=== PATIENT | female | born 1965 | race American Indian/Alaskan Native ===

== ENCOUNTER 2017-03-27 10:27 | Outpatient (CLI) | payer MEDICAID ==
--- NOTE | 2017-03-27 14:53 | Mammography Report ---
BILATERAL DIGITAL SCREENING MAMMOGRAM with CAD: 03/27/17 CLINICAL: Routine screening.Previous right benign biopsy. COMPARISON:None available. However, a prior mammogram was apparently done at [facility]. FINDINGS: The breasts are heterogeneously dense, which may obscure small masses. Right asymmetries and calcifications require comparison with the prior mammogram or additional imaging. The left breast is negative. IMPRESSION: Right asymmetries requiring further evaluation. BI-RADS CATEGORY: 0 -- Additional Evaluation Required RECOMMENDATION: Comparison with a previous mammogram. We will attempt obtain a prior mammogram from [facility]. If we do not obtain a prior mammogram for comparison within 30 days, a revised report will be issued recommending a recall for additional imaging. Please be advised that the patient should not schedule an appointment for return until adequate time (at least 2 weeks) has passed for us to obtain the prior mammogram. ACR BI-RADS MAMMOGRAPHIC CODES: 0 = Needs additional imaging evaluation; 1 = Negative; 2 = Benign; 3 = Probably benign; 4 = Suspicious; 5 = Malignant; 6 = Known biopsy-proven malignancy COMMENT: 1. Dense breast tissue, i.e., adenosis, fibrocystic changes, etc., may obscure an underlying neoplasm. 2. Approximately 10% of cancers are not detected with mammography. 3. A negative mammography report should not delay biopsy if a clinically suspicious mass is present. COMMENT: Patient follow-up letters are generated via our [email or web address] application.
== END 2017-03-27 10:28 | disposition home or self-care (01) ==
LOC: SPVWC 10:27
DX: Z12.31 Encounter for screening mammogram for malignant neoplasm of breast (principal); I10 Essential (primary) hypertension; Z72.0 Tobacco use
CPT/HCPCS: 77067; G0202

== ENCOUNTER 2017-05-28 09:36 | Outpatient (CLI) | payer OTHER ==
--- NOTE | 2017-05-28 11:08 | Mammography Report ---
RIGHT DIGITAL DIAGNOSTIC MAMMOGRAM : 05/28/17 09:36:00 CLINICAL: Recalled for asymmetries. COMPARISON:03/27/17 screening FINDINGS: ML and spot compression MLO and CC views were performed. Satisfactory effacement of asymmetries and no asymmetry of the lateral view. IMPRESSION: No mammographic evidence of malignancy. BI-RADS CATEGORY: 2 - - Benign RECOMMENDATION: Routine mammographic screening in one year. ACR BI-RADS MAMMOGRAPHIC CODES: 0 = Needs additional imaging evaluation; 1 = Negative; 2 = Benign; 3 = Probably benign; 4 = Suspicious; 5 = Malignant; 6 = Known biopsy-proven malignancy COMMENT: 1. Dense breast tissue, i.e., adenosis, fibrocystic changes, etc., may obscure an underlying neoplasm. 2. Approximately 10% of cancers are not detected with mammography. 3. A negative mammography report should not delay biopsy if a clinically suspicious mass is present. COMMENT: Patient follow-up letters are generated via our [employer] application.
== END 2017-05-28 09:37 | disposition home or self-care (01) ==
LOC: SPVWC 09:36
DX: R92.8 Other abnormal and inconclusive findings on diagnostic imaging of breast (principal); I10 Essential (primary) hypertension; E11.9 Type 2 diabetes mellitus without complications
CPT/HCPCS: G0206-RT

== ENCOUNTER 2019-05-01 08:53 | Emergency (ER) | payer MEDICARE, OTHER ==
[2019-05-01 09:04] VITALS: BP 152/88
[2019-05-01] MEDS ORDERED: PEPCID PO ONE (10:02)
[2019-05-01] MEDS ORDERED: BENADRYL PO ONE (10:02)
--- NOTE | 2019-05-01 10:02 | Emergency Department Report ---
ED Rash HPI - HPI Chief Complaint: Allergic Reaction Stated Complaint: ALLERGIC REACTION Time Seen by Provider: 05/01/19 09:57 Duration: 3 Days Location: Back, Lower Extremities Suspected Cause: Unknown Rash Symptoms: Yes Itching, Yes Facial Swelling (eye lid swelling), No Tongue/Oral Swelling, No Breathing Difficulties, No Choking Sensation, No Wheezing/Dyspnea, No Peeling, No Blistering, No Fever, No Lightheaded, No Malaise, No Myalgias Severity: mild Other History: Mrs. Ayala is a 53-year-old female with history of aqu-[id number] diabetes who presents with allergic reaction that started earlier this week. She has diffuse itching. However she has urticaria mostly in her lower back and posterior legs. Unclear the inciting factor for the reaction. She denies shortness of breath. She denies sore throat. ED Review of Systems ROS: Stated complaint: ALLERGIC REACTION Other details as noted in HPI Constitutional: denies: fever, malaise Respiratory: shortness of breath Cardiovascular: chest pain Skin: rash, lesions ED Past Medical Hx - Past Medical History Previous Medical History?: Yes Hx Hypertension: Yes Hx Diabetes: Yes Additional medical history: HIGH CHOLESTEROL. ANGINA. neuropathy - Surgical History Past Surgical History?: Yes Additional Surgical History: partial hysterectomy 1989 - Social History Smoking Status: Never Smoker Substance Use Type: None - Medications Home Medications: Home Medications Medication Instructions Recorded Confirmed Last Taken Type Metoprolol [Lopressor TAB] 100 mg PO DAILY #30 tablet 08/30/14 05/11/16 09/28/14 Rx metFORMIN [Glucophage] 850 mg PO BIDDIAB #60 tablet 08/30/14 05/11/16 09/28/14 Rx Ibuprofen [Motrin 600 MG tab] 600 mg PO Q8H PRN #15 tablet 07/25/15 05/11/16 Unknown Rx AtorvaSTATin [Lipitor] 20 mg PO DAILY 05/11/16 05/11/16 Unknown History Citalopram [celeXA] 20 mg PO QDAY 05/11/16 05/11/16 Unknown History Gabapentin [Neurontin] 100 mg PO DAILY 05/11/16 05/11/16 Unknown History Prednisone [predniSONE 5 mg (6-Day 5 mg PO .TAPER #1 tab.ds.pk 05/11/16 Unknown Rx Pack, 21 Tabs)] glipiZIDE [Glucotrol] 10 mg PO QDAY 05/11/16 05/11/16 Unknown History hydrOXYzine HCL [Atarax] 25 mg PO Q6HR PRN #20 tablet 05/11/16 Unknown Rx raNITIdine HCl [Zantac 150 MG TAB] 150 mg PO BID #60 tablet 05/11/16 Unknown Rx Famotidine [Pepcid] 20 mg PO BID 3 Days #6 tablet 05/01/19 Unknown Rx Hydrocortisone 1% [Hydrocortisone 1 applicatio TP TID 7 Days #1 tube 05/01/19 Unknown Rx 1% CREAM] Prednisone [predniSONE 5 mg (6-Day 5 mg PO .TAPER #1 tab.ds.pk 05/01/19 Unknown Rx Pack, 21 Tabs)] diphenhydrAMINE [Benadryl CAP] 50 mg PO Q8HR 4 Days #12 capsule 05/01/19 Unknown Rx Rash Exam - Exam General: Vital signs noted. No distress. Alert and acting appropriately. HEENT: Yes Periorbital Edema (mild edema upper eyelids), No Conjuctival Injection, No Chemosis, No Perioral Edema, No Tongue Edema, No Uvular Edema, No Compromised Airway, No Drooling Lungs: Yes Good Air Exchange (Normal Breath Sounds), No Wheezes, No Ronchi, No Stridor, No Cough, No Labored Respirations, No Retractions, No Use of Accessory Muscles, No Other Abnormal Lung Sounds Heart: Yes Regular, No Murmur Skin: Yes Urticarial Rash (isolated to lower back) Other: Positive: Abdomen Normal, Neurologic Normal, Musculoskeletal Normal ED Course Vital Signs 05/01/19 08:58 Temperature 98.4 F Pulse Rate 95 H Respiratory 18 Rate Blood Pressure 152/88 O2 Sat by Pulse 100 Oximetry ED Medical Decision Making - Medical Decision Making Mrs. Ayala presents with diffuse itching periorbital edema isolated urticaria to the lower back and posterior legs. Contact dermatitis versus anaphylaxis, prescribed prednisone and famotidine Benadryl. No evidence of angioedema or bronchospasm. Blood pressure 152/88. Heart rate 95 beats a minute. Discharged home Critical care attestation.: If time is entered above; I have spent that time in minutes in the direct care of this critically ill patient, excluding procedure time. ED Disposition Clinical Impression: Contact dermatitis Disposition: DC- TO HOME OR SELFCARE Is pt being admited?: No Does the pt Need Aspirin: No Condition: Stable Instructions: Contact Dermatitis (ED) Prescriptions: diphenhydrAMINE [Benadryl CAP] 50 mg PO Q8HR 4 Days #12 capsule Hydrocortisone 1% [Hydrocortisone 1% CREAM] 1 applicatio TP TID 7 Days #1 tube Famotidine [Pepcid] 20 mg PO BID 3 Days #6 tablet Prednisone [predniSONE 5 mg (6-Day Pack, 21 Tabs)] 5 mg PO .TAPER #1 tab.ds.pk Referrals: GERARDO BENJAMIN MD [Primary Care Provider] - 3-5 Days
[2019-05-01] MEDS ORDERED: DELTASONE PO STA (10:03)
== END 2019-05-01 10:11 | disposition home or self-care (01) ==
LOC: ED 08:53
DX: L25.9 Unspecified contact dermatitis, unspecified cause (principal); I10 Essential (primary) hypertension; E11.9 Type 2 diabetes mellitus without complications; E78.00 Pure hypercholesterolemia, unspecified; G62.9 Polyneuropathy, unspecified; Z90.710 Acquired absence of both cervix and uterus; Z98.890 Other specified postprocedural states; Z79.899 Other long term (current) drug therapy
CPT/HCPCS: 99282; J7512

== ENCOUNTER 2019-05-11 01:35 | Observation (INO) | payer MEDICARE ==
[2019-05-11 02:28] LABS: Basophils # (Auto) 0.1 K/mm3 (0.0-0.1); Basophils % (Auto) 0.9 % (0.0-1.8); Eosinophils # (Auto) 0.3 K/mm3 (0.0-0.4); Eosinophils % (Auto) 2.2 % (0.0-4.3); Hematocrit 37.7 % (30.3-42.9); Hemoglobin 12.5 gm/dl (10.1-14.3); Lymphocytes # (Auto) 3.5 K/mm3 (1.2-5.4); Lymphocytes % (Auto) 22.3 % (13.4-35.0); Mean Corpuscular HGB Conc 33 % (30-34); Mean Corpuscular Volume 86 fl (79-97); Monocytes # (Auto) 1.2 K/mm3 (0.0-0.8); Monocytes % (Auto) 7.5 % (0.0-7.3); Platelet Count 342 K/mm3 (140-440); Red Cell Distribution Width 13.8 % (13.2-15.2)
[2019-05-11 02:44] LABS: BUN/Creatinine Ratio 19; Blood Urea Nitrogen 17 mg/dL (7-17); Calcium 9.2 mg/dL (8.4-10.2); Hemolysis Index 4
--- NOTE | 2019-05-11 02:53 | XRay Report ---
CHEST 1 VIEW INDICATION / CLINICAL INFORMATION: Chest Pain. COMPARISON: 08/29/2014 FINDINGS: SUPPORT DEVICES: None. HEART / MEDIASTINUM: No significant abnormality. LUNGS / PLEURA: No significant pulmonary or pleural abnormality. No pneumothorax. ADDITIONAL FINDINGS: No significant additional findings. IMPRESSION: 1. No acute findings. Signer Name: Griffin Souza MD Signed: 05/11/2019 2:48 AM Workstation Name: [email or web address]
[2019-05-11] MEDS ORDERED: ASPIRIN PO ONE (04:40)
[2019-05-11] MEDS ORDERED: NITRO-BID 2% TP ONE (04:40)
[2019-05-11] MEDS ORDERED: SUBLIMAZE IV ONE (04:40)
[2019-05-11] MEDS ORDERED: ZOFRAN IV ONE (04:40)
--- NOTE | 2019-05-11 04:42 | Emergency Department Report ---
HPI - General Chief Complaint: Chest Pain Time Seen by Provider: 05/11/19 04:25 - HPI HPI: Room 26 The patient is a 53-year-old female presenting with chief complaint of chest pain and palpitations. The patient states the past 3 days she has had pain in her right chest radiating to her right shoulder. Patient describes the pain is sharp and burning in nature. Patient admits to nausea but denies vomiting or shortness of breath. Patient states she has had has some diaphoresis with the chest pain. Patient states it also feels though her heart is racing that she is experiencing palpitations. He gives her chest pain score of 6/10. She states h er last cardiac catheterization occurred in 2017 and she was told she had a 60% blockage in one of her vessels. No stents were placed ED Past Medical Hx - Past Medical History Previous Medical History?: Yes Hx Hypertension: Yes Hx Diabetes: Yes Hx Arthritis: Yes Additional medical history: HIGH CHOLESTEROL. ANGINA. neuropathy - Surgical History Past Surgical History?: Yes Additional Surgical History: partial hysterectomy 1989 - Family History Family history: no significant - Social History Smoking Status: Never Smoker Substance Use Type: None (denies illicit drug use) - Medications Home Medications: Home Medications Medication Instructions Recorded Confirmed Last Taken Type Metoprolol [Lopressor TAB] 100 mg PO DAILY #30 tablet 08/30/14 05/11/16 09/28/14 Rx metFORMIN [Glucophage] 850 mg PO BIDDIAB #60 tablet 08/30/14 05/11/16 09/28/14 Rx Ibuprofen [Motrin 600 MG tab] 600 mg PO Q8H PRN #15 tablet 07/25/15 05/11/16 Unknown Rx AtorvaSTATin [Lipitor] 20 mg PO DAILY 05/11/16 05/11/16 Unknown History Citalopram [celeXA] 20 mg PO QDAY 05/11/16 05/11/16 Unknown History Gabapentin [Neurontin] 100 mg PO DAILY 05/11/16 05/11/16 Unknown History Prednisone [predniSONE 5 mg (6-Day 5 mg PO .TAPER #1 tab.ds.pk 05/11/16 Unknown Rx Pack, 21 Tabs)] glipiZIDE [Glucotrol] 10 mg PO QDAY 05/11/16 05/11/16 Unknown History hydrOXYzine HCL [Atarax] 25 mg PO Q6HR PRN #20 tablet 05/11/16 Unknown Rx raNITIdine HCl [Zantac 150 MG TAB] 150 mg PO BID #60 tablet 05/11/16 Unknown Rx Famotidine [Pepcid] 20 mg PO BID 3 Days #6 tablet 05/01/19 Unknown Rx Hydrocortisone 1% [Hydrocortisone 1 applicatio TP TID 7 Days #1 tube 05/01/19 Unknown Rx 1% CREAM] Prednisone [predniSONE 5 mg (6-Day 5 mg PO .TAPER #1 tab.ds.pk 05/01/19 Unknown Rx Pack, 21 Tabs)] diphenhydrAMINE [Benadryl CAP] 50 mg PO Q8HR 4 Days #12 capsule 05/01/19 Unknown Rx ED Review of Systems ROS: Stated complaint: HEART RACING/LEFT SHOULDER PAIN Other details as noted in HPI Constitutional: diaphoresis Eyes: denies: eye pain ENT: denies: throat pain Respiratory: shortness of breath Cardiovascular: chest pain, palpitations Endocrine: no symptoms reported Gastrointestinal: nausea. denies: vomiting Genitourinary: denies: dysuria Musculoskeletal: denies: back pain Neurological: denies: headache Physical Exam - Physical Exam Vital Signs: Vital Signs 05/11/19 01:49 Temperature 98.0 F Pulse Rate 104 H Blood Pressure 160/72 O2 Sat by Pulse 97 Oximetry Physical Exam: GENERAL: The patient is well-developed well-nourished female lying on stretcher not appearing to be in acute distress. [] HEENT: Normocephalic. Atraumatic. Extraocular motions are intact. Patient has moist mucous membranes. NECK: Supple. Trachea midline CHEST/LUNGS: Clear to auscultation. There is no respiratory distress noted. HEART/CARDIOVASCULAR: Regular. There is no tachycardia. There is no gallop rub or murmur. ABDOMEN: Abdomen is soft, nontender. Patient has normal bowel sounds. There is no abdominal distention. SKIN: There is no rash. There is no edema. There is no diaphoresis. NEURO: The patient is awake, alert, and oriented. The patient is cooperative. The patient has normal speech MUSCULOSKELETAL:There is no evidence of acute injury. ED Course Vital Signs 05/11/19 01:49 Temperature 98.0 F Pulse Rate 104 H Blood Pressure 160/72 O2 Sat by Pulse 97 Oximetry ED Medical Decision Making - Lab Data Result diagrams: 05/11/19 02:05 05/11/19 02:05 - EKG Data -: EKG Interpreted by Me EKG shows normal: sinus rhythm Rate: normal - EKG Data When compared to previous EKG there are: changes noted Interpretation: nonspecific ST-T wave mary (T-wave inversion in lead V6), other (frequent PVCs) - Radiology Data Radiology results: report reviewed (chest x-ray), image reviewed (chest x-ray) interpreted by me: Chest x-ray-no focal infiltrates, no pneumothorax [facility] [address] [place] [address] XRay Report Signed Patient: MANUEL AYALA MR#: [id number] : 1965 Acct:[id number] Age/Sex: 53 / F ADM Date: 05/11/19 Loc: ED Attending Dr: Ordering Physician: ED MD SADA Date of Service: 05/11/19 Procedure(s): XR chest 1V ap Accession Number(s): [id number] cc: ED MD SADA Fluoro Time In Minutes: CHEST 1 VIEW INDICATION / CLINICAL INFORMATION: Chest Pain. COMPARISON: 08/29/2014 FINDINGS: SUPPORT DEVICES: None. HEART / MEDIASTINUM: No significant abnormality. LUNGS / PLEURA: No significant pulmonary or pleural abnormality. No pneumothorax. ADDITIONAL FINDINGS: No significant additional findings. IMPRESSION: 1. No acute findings. Signer Name: Griffin Souza MD Signed: 05/11/2019 2:48 AM Workstation Name: [id number] Transcribed By: Dictated By: Griffin Souza MD Electronically Authenticated By: Griffin Souza MD Signed Date/Time: 05/11/19247 DD/ 7 TD/TT: - Differential Diagnosis ACS, pericarditis, GERD Critical care attestation.: If time is entered above; I have spent that time in minutes in the direct care of this critically ill patient, excluding procedure time. ED Disposition Clinical Impression: Chest pain Disposition: OP ADMIT IP TO THIS HOSP Is pt being admited?: Yes Does the pt Need Aspirin: Yes Condition: Fair Instructions: Chest Pain (ED) Referrals: WALESKA MALLORY [Other] - 3-5 Days Time of Disposition: 04:48 (hospitalist paged (Dr. Chanel Ayala))
[2019-05-11] MEDS ORDERED: MORPHINE IV PRN (05:49)
--- NOTE | 2019-05-11 09:08 | History and Physical Report ---
History of Present Illness Date of examination: 05/11/19 Date of admission: 05/11/19 05:55 Chief complaint: Chest pain History of present illness: The patient is a 53-year-old woman with history of hypertension, diabetes on oral hypoglycemic medications, who presented with chest pain and palpitations. She has a extensive cardiac ischemic workup at [facility] last year, which included a cardiac catheterization and she was told she had mild nonobstructive disease for conservative management. She presents to the hospital at this time with nonexertional chest pain, poorly characterized, with additional complaints of palpitations. There was no dizziness or syncope. There is no lower extremity edema. EKG is sinus rhythm with left bundle-branch block. The left bundle branch block is old, and present on her ECG from 2013. She was ordered for stress test admitted for further examination and management, cardiology consulted in the ED. Past medical History: h/o hypertension, diabetes PAST SURGICAL HISTORY: Partial hysterectomy SOCIAL HISTORY: Denies alcohol, tobacco, drugs FAMILY HISTORY: Hypertension Review of System: Constitutional: no fever, no chills, no weight loss Ears, eyes, nose, mouth and throat: no nasal congestion, no nasal discharge, no sinus pressure, no vision change, no red eye. Neck: No neck pain or rigidity. Cardiovascular: + chest pain, no orthopnea, + palpitations, no leg swelling Respiratory: No shortness of breath, no cough, no congestion, no wheezing Gastrointestinal: no abdominal pain, no nausea, no vomiting Genitourinary : no dysuria, no hematuria Musculoskeletal: no joint swelling or muscle ache Integumentary: no rash, no pruritis Neurological: no parathesias, no numbness, no tingling Endocrine: no cold or heat intolerance, no polyuria or polydipsia Hematologic/Lymphatic: no easy bruising, no easy bleeding, no gland swelling Allergic/Immunologic: no urticaria, no angioedema. Medications and Allergies Allergies Allergy/AdvReac Type Severity Reaction Status Date / Time No Known Allergies Allergy Verified 07/25/15 16:59 Home Medications Medication Instructions Recorded Confirmed Last Taken Type Metoprolol [Lopressor TAB] 100 mg PO DAILY #30 tablet 08/30/14 05/11/16 09/28/14 Rx metFORMIN [Glucophage] 850 mg PO BIDDIAB #60 tablet 08/30/14 05/11/16 09/28/14 Rx AtorvaSTATin [Lipitor] 20 mg PO DAILY 05/11/16 05/11/16 Unknown History Citalopram [Celexa] 20 mg PO QDAY 05/11/16 05/11/16 Unknown History Gabapentin [Neurontin] 100 mg PO DAILY 05/11/16 05/11/16 Unknown History glipiZIDE [Glucotrol] 10 mg PO QDAY 05/11/16 05/11/16 Unknown History raNITIdine HCl [Zantac] 150 mg PO BID #60 tablet 05/11/16 Unknown Rx Famotidine [Pepcid] 20 mg PO BID 3 Days #6 tablet 05/01/19 Unknown Rx Prednisone [predniSONE 5 mg (6-Day 5 mg PO .TAPER #1 tab.ds.pk 05/01/19 Unknown Rx Pack, 21 Tabs)] Pantoprazole [Protonix] 40 mg PO QDAY #30 tablet 05/11/19 Unknown Rx Active Meds: Active Medications Morphine Sulfate (Morphine) 2 mg IV Q4H PRN PRN Reason: Pain, Moderate (4-6) Exam - Physical Exam Narrative exam: GENERAL: well-developed and well-nourished obese female lying on bed appeared to be in no discomfort. HEENT: Normocephalic. Atraumatic. No conjunctival congestion or icterus. Patient has moist mucous membranes. NECK: Supple. Trachea midline. CHEST/LUNGS: Clear to auscultated bilaterally, breathing nonlabored. No wheezes crackles or rhonchi. HEART/CARDIOVASCULAR: Regular in rate and rhythm. S1 and S2 positive. ABDOMEN: Abdomen is soft, nontender. Patient has normal bowel sounds. SKIN: There is no rash. Warm and dry. NEURO: No focal motor deficit. Follows command. MUSCULOSKELETAL: No joint effusion or tenderness. EXTRIMITY: No edema, no cyanosis or clubbing. PSYCH: Cooperative. - Constitutional Vitals: Temp Pulse Resp BP Pulse Ox 98.0 F 97 H 19 142/64 98 05/11/19 01:49 05/11/19 06:00 05/11/19 06:00 05/11/19 06:00 05/11/19 06:00 Results - Labs CBC & Chem 7: 05/11/19 02:05 05/11/19 02:05 Labs: Abnormal lab results 05/11/19 05/11/19 Range/Units 02:05 02:05 WBC 15.7 H (4.5-11.0) K/mm3 [place] % (Auto) 7.5 H (0.0-7.3) % [place] # 1.2 H (0.0-0.8) K/mm3 Seg Neutrophils # 10.5 H (1.8-7.7) K/mm3 Glucose 184 H (65-100) mg/dL - Imaging and Cardiology Chest x-ray: report reviewed Assessment and Plan Acute chest pain - - will admit to telemetry bed - monitor with serial CE and EKG - will place on Aspirin, statin - as needed SL NTG and iv morphin for pain - Monitor BP, add betablocker and ACEI if BP tolerates - order 2D echo and stress test in the am - Cardiologic consult Hypertension, we'll resume home meds Diabetes mellitus type 2, will place on SSI and continue metformin and glipizide Obesity, dietary and exercise recommendation when clinically stable DVT prophylaxis: Lovenox
[2019-05-11] MEDS ORDERED: LEXISCAN IV ONE (10:39)
--- NOTE | 2019-05-11 14:11 | Consultation ---
History of Present Illness Consult date: 05/11/19 Consult reason: chest pain History of present illness: The patient is a 53-year-old woman who presented with chest pain and palpitat ions. She has a history of hypertension, and describes extensive cardiac ischemic workup at [facility] last year, which included a cardiac catheterization. Following cardiac catheterization, she states that she was told she had mild nonobstructive disease for conservative management. She is uncertain about her left ventricular systolic function or ejection fraction. She presents to the hospital at this time with nonexertional chest pain, poorly characterized, with additional complaints of palpitations. There was no dizziness or syncope. There is no lower extremity edema. EKG is sinus rhythm with left bundle-branch block. The left bundle branch block is old, and present on her ECG from 2013. Today, she underwent a Lexiscan thallium stress test ordered by the medical se becky, the test was completed and the results are pending. Past History Past Medical History: hypertension Medications and Allergies Allergies Allergy/AdvReac Type Severity Reaction Status Date / Time No Known Allergies Allergy Verified 07/25/15 16:59 Home Medications Medication Instructions Recorded Confirmed Last Taken Type Metoprolol [Lopressor TAB] 100 mg PO DAILY #30 tablet 08/30/14 05/11/16 09/28/14 Rx metFORMIN [Glucophage] 850 mg PO BIDDIAB #60 tablet 08/30/14 05/11/16 09/28/14 Rx Ibuprofen [Motrin 600 MG tab] 600 mg PO Q8H PRN #15 tablet 07/25/15 05/11/16 Unknown Rx AtorvaSTATin [Lipitor] 20 mg PO DAILY 05/11/16 05/11/16 Unknown History Citalopram [celeXA] 20 mg PO QDAY 05/11/16 05/11/16 Unknown History Gabapentin [Neurontin] 100 mg PO DAILY 05/11/16 05/11/16 Unknown History Prednisone [predniSONE 5 mg (6-Day 5 mg PO .TAPER #1 tab.ds.pk 05/11/16 Unknown Rx Pack, 21 Tabs)] glipiZIDE [Glucotrol] 10 mg PO QDAY 05/11/16 05/11/16 Unknown History hydrOXYzine HCL [Atarax] 25 mg PO Q6HR PRN #20 tablet 05/11/16 Unknown Rx raNITIdine HCl [Zantac 150 MG TAB] 150 mg PO BID #60 tablet 05/11/16 Unknown Rx Famotidine [Pepcid] 20 mg PO BID 3 Days #6 tablet 05/01/19 Unknown Rx Hydrocortisone 1% [Hydrocortisone 1 applicatio TP TID 7 Days #1 tube 05/01/19 Unknown Rx 1% CREAM] Prednisone [predniSONE 5 mg (6-Day 5 mg PO .TAPER #1 tab.ds.pk 05/01/19 Unknown Rx Pack, 21 Tabs)] diphenhydrAMINE [Benadryl CAP] 50 mg PO Q8HR 4 Days #12 capsule 05/01/19 Unknown Rx Active Meds: Active Medications Aspirin (Ecotrin) 325 mg PO QDAY [place] Atorvastatin Calcium (Lipitor) 20 mg PO DAILY [place] Citalopram Hydrobromide (Celexa) 20 mg PO QDAY [place] Famotidine (Pepcid) 20 mg PO BID [place] Gabapentin (Neurontin) 100 mg PO DAILY [place] Glipizide (Glucotrol) 10 mg PO QDDIAB [place] Metformin HCl (Glucophage) 850 mg PO BIDDIAB [place] Metoprolol Tartrate (Lopressor) 100 mg PO DAILY [place] Morphine Sulfate (Morphine) 2 mg IV Q4H PRN PRN Reason: Pain, Moderate (4-6) Last Admin: 05/11/19 09:44 Dose: 2 mg Documented by: Review of Systems Cardiovascular: chest pain, palpitations, no orthopnea, no rapid/irregular heart beat, no edema, no syncope, no lightheadedness, no shortness of breath Physical Examination Vital Signs Temp Pulse BP Pulse Ox 98.0 F 104 H 160/72 97 05/11/19 01:49 05/11/19 01:49 05/11/19 01:49 05/11/19 01:49 General appearance: no acute distress HEENT: Positive: PERRL Neck: Positive: neck supple Cardiac: Positive: Reg Rate and Rhythm Lungs: Positive: Decreased Breath Sounds Neuro: Positive: Grossly Intact Abdomen: Positive: Soft Female genitourinary: deferred Skin: Positive: Clear Extremities: Absent: edema Results 05/11/19 02:05 05/11/19 02:05 CBC 05/11/19 Range/Units 02:05 WBC 15.7 H (4.5-11.0) K/mm3 RBC 4.40 (3.65-5.03) M/mm3 Hgb 12.5 (10.1-14.3) gm/dl Hct 37.7 (30.3-42.9) % Plt Count 342 (140-440) K/mm3 Lymph # 3.5 (1.2-5.4) K/mm3 [place] # 1.2 H (0.0-0.8) K/mm3 Eos # 0.3 (0.0-0.4) K/mm3 Baso # 0.1 (0.0-0.1) K/mm3 Comprehensive Metabolic Panel 05/11/19 Range/Units 02:05 Sodium 139 (137-145) mmol/L Potassium 3.6 (3.6-5.0) mmol/L Chloride 99.0 (98-107) mmol/L Carbon Dioxide 24 (22-30) mmol/L BUN 17 (7-17) mg/dL Creatinine 0.9 (0.7-1.2) mg/dL Glucose 184 H (65-100) mg/dL Calcium 9.2 (8.4-10.2) mg/dL EKG interpretations - Telemetry EKG Rhythm: Sinus Rhythm (with left bundle branch block) Assessment and Plan - Patient Problems (1) Chest pain Current Visit: Yes Status: Acute Plan to address problem: Patient's chest pain is atypical, EKG is left bundle branch block which is old, she has completed a rule out [place] protocol and a Lexiscan stress test has been completed, results pending. We will request the records from [facility] for further evaluation, particularly with respect to previous left ventricle function assessment. Further inpatient for his treatment will be based on LV function. As outpatient, she may also benefit from extended event monitoring in the setting of complaint of palpitations.
--- NOTE | 2019-05-11 14:30 | Event Note ---
Date: 05/11/19 We've received copies of the patient's cardiac catheterization performed at [facility] one year ago 05/06/2017. There was no significant coronary artery disease, no significant coronary lesions. Left ventricular ejection fraction was 60% by left ventricle angiography, and 55-60% on echocardiography. Lexiscan thallium stress test today shows normal myocardial perfusion, left ventricular ejection fraction by gated SPECT was 60%. No further cardiac workup is indicated, patient is stable for cardiac discharge.
[2019-05-11 15:02] VITALS: BP 161/67
--- NOTE | 2019-05-11 15:05 | Discharge Summary ---
Providers - Providers Date of Admission: 05/11/19 05:55 Date of discharge: 05/11/19 Attending physician: DIOMEDES LUCAS 05/11/19 09:07 Consult to Physician [CONS] Routine Comment: Consulting Provider: NATALIE CASTILLO Physician Instructions: Reason For Exam: chest pain Hospitalization Condition: Fair Hospital course: The patient is a 53-year-old woman with history of hypertension, diabetes on oral hypoglycemic medications, who presented with chest pain and palpitations. She has a extensive cardiac ischemic workup at [facility] last year, which included a cardiac catheterization and she was told she had mild nonobstructive disease for conservative management. She presents to the hospital at this time with nonexertional chest pain, poorly characterized, with additional complaints of palpitations. There was no dizziness or syncope. There is no lower extremity edema. EKG is sinus rhythm with left bundle-branch block. The left bundle branch block is old, and present on her ECG from 2013. She was ordered for stress test admitted for further examination and management, cardiology consulted in the ED. We've reviewed copies of the patient's cardiac catheterization performed at [facility] one year ago 05/06/2017. There was no significant coronary artery disease, no significant coronary lesions. Left ventricular ejec tion fraction was 60% by left ventricle angiography, and 55-60% on echocardiography. Lexiscan thallium stress test today showed normal myocardial perfusion, left ventricular ejection fraction by gated SPECT was 60%. No further cardiac workup is indicated per cardiology , patient was cleared for discharge. Discharge diagnosis: Atypical chest pain, likely due to GERD - Negative stress test - Previous cardiac cath reviewed which showed no significant coronary artery disease - Cardiology was consulted and cleared for discharge. Disposition: TO HOME OR SELFCARE Time spent for discharge: 34 minutes Core Measure Documentation - Palliative Care Palliative Care/ Comfort Measures: Not Applicable - Core Measures Any of the following diagnoses?: none Exam - Constitutional Vitals: Temp Pulse Resp BP Pulse Ox 97.9 F 91 H 18 161/67 94 05/11/19 13:00 05/11/19 13:00 05/11/19 13:00 05/11/19 13:00 05/11/19 13:00 General appearance: Present: no acute distress, obese - EENT Eyes: Present: PERRL ENT: hearing intact, clear oral mucosa - Neck Neck: Present: supple, normal ROM - Respiratory Respiratory effort: normal Respiratory: bilateral: CTA - Cardiovascular Heart Sounds: Present: S1 & S2. Absent: rub, click - Extremities Extremities: pulses symmetrical, No edema Peripheral Pulses: within normal limits - Abdominal General gastrointestinal: Present: soft, non-tender, non-distended, normal bowel sounds - Integumentary Integumentary: Present: clear, warm, dry - Musculoskeletal Musculoskeletal: gait normal, strength equal bilaterally - Psychiatric Psychiatric: appropriate mood/affect, intact judgment & insight - Neurologic Neurologic: CNII-XII intact, moves all extremities Plan Activity: advance as tolerated Weight Bearing Status: Weight Bear as Tolerated Diet: low fat, low salt Follow up with: WALESKA MALLORY [Other] - 3-5 Days Prescriptions: Pantoprazole [Protonix] 40 mg PO QDAY #30 tablet
[2019-05-11] MEDS ORDERED: GLUCOPHAGE PO SCH (17:00)
[2019-05-11] MEDS ORDERED: PEPCID PO SCH (22:00)
--- NOTE | 2019-05-12 00:14 | Treadmill Report ---
THALLIUM STRESS TEST REPORT LEFT VENTRICLE: Left ventricular chamber size is within normal spread. Perfusion study demonstrates homogeneous uptake of the tracer in all segments, no significant perfusion defects identified. Gated analysis demonstrates normal left ventricular systolic function, ejection fraction 60%. CONCLUSION: Normal myocardial perfusion study. JOB# [id number] CA/NTS
[2019-05-12] MEDS ORDERED: GLUCOTROL PO SCH (08:00)
[2019-05-12] MEDS ORDERED: celeXA PO SCH (10:00)
[2019-05-12] MEDS ORDERED: LOPRESSOR PO SCH (10:00)
[2019-05-12] MEDS ORDERED: ECOTRIN PO SCH (10:00)
[2019-05-12] MEDS ORDERED: NEURONTIN PO SCH (10:00)
== END 2019-05-11 19:32 | disposition home or self-care (01) ==
LOC: ED 01:35 → 4A 05:55
PROVIDERS: ADMIT Internal Medicine; ATTEND Internal Medicine
DX: R07.89 Other chest pain (principal); E11.9 Type 2 diabetes mellitus without complications; I10 Essential (primary) hypertension; E66.9 Obesity, unspecified; Z68.34 Body mass index [BMI] 34.0-34.9, adult
CPT/HCPCS: 36415; 71045; 78452; 80048; 82962; 84484; 85025; 93005; 93010; 93017; 96374; 96375; 99284; A9502; G0378; J2270; J2405; J2785; J3010

== ENCOUNTER 2019-09-09 18:09 | Emergency (ER) | payer MEDICARE ==
[2019-09-09 18:18] VITALS: BP 159/79
[2019-09-09] MEDS ORDERED: IBUPROFEN 800 MG TAB PO ONE (21:00)
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
== END 2019-09-09 21:33 | disposition home or self-care (01) ==
LOC: ED 18:09
DX: M54.5 Low back pain (principal); R51 Headache; I10 Essential (primary) hypertension; E11.9 Type 2 diabetes mellitus without complications; M19.90 Unspecified osteoarthritis, unspecified site; E78.00 Pure hypercholesterolemia, unspecified; Z90.710 Acquired absence of both cervix and uterus; Z79.899 Other long term (current) drug therapy; V49.49XA Driver injured in collision with other motor vehicles in traffic accident, initial encounter; Y93.89 Activity, other specified; Y92.410 Unspecified street and highway as the place of occurrence of the external cause; Y99.8 Other external cause status